=== PATIENT | male | born 1950 | race Caucasian/White ===

== ENCOUNTER 2016-11-01 01:46 | Inpatient (IN) | payer MEDICARE, MEDICAID ==
[~2016-11-01] VITALS: Ht 175.3 cm; Wt 76.2 kg
--- NOTE | 2016-11-01 01:56 | NUR ---
Pt IN ER BED 3. Pt IS A/OX3, VERBAL, ABLE TO MAKE NEEDS KNOWN. SON AT BEDSIDE. NO S/S OF ACUTE DISTRESS OR SEVERE SOB NOTED. VS: BP 125/52, HR 69, R 18, T 97.6F, O2 94%.
[2016-11-01] MEDS ORDERED: ASPIRIN 81 MG TAB.CHEW PO ONE (02:00)
[2016-11-01] MEDS ORDERED: ASPIRIN 81 MG TAB.CHEW ONE (02:19)
--- NOTE | 2016-11-01 02:20 | NUR ---
IV ACCESS ON RAC #18G.
[2016-11-01 02:25] LABS: BASOPHILS % (AUTO) 0.3 % (0.0-2.0); EOSINOPHILS # (AUTO) 0.2 /CMM (0.0-0.7); HEMATOCRIT 42 % (39-51); HEMOGLOBIN 14.1 g/dL (13.5-17.5); LYMPHOCYTES # (AUTO) 2.5 /CMM (0.8-4.8); LYMPHOCYTES % (AUTO) 31.6 % (20.0-44.0); MEAN CORPUSCULAR HEMOGLOBIN 30 PG (26.0-33.0); MEAN CORPUSCULAR HGB CONC 34 g/dl (31.0-36.0); MEAN CORPUSCULAR VOLUME 90 fL (80-96); MONOCYTES # (AUTO) 0.5 /CMM (0.1-1.30); MONOCYTES % (AUTO) 5.9 % (2.0-12.0); NEUTROPHILS # (AUTO) 4.6 /CMM (1.8-8.9); NEUTROPHILS % (AUTO) 59.2 % (43.0-81.0); PLATELET COUNT (AUTO) 175 /CMM (150-450); RDW COEFFICIENT OF VARIATION 13.7 (11.5-15.0); RED BLOOD CELL COUNT(AUTO) 4.66 MIL/uL (4.5-6.0); WHITE BLOOD COUNT (AUTO) 7.8 K/uL (4.3-11.0)
[2016-11-01] MEDS ORDERED: FAMOTIDINE/PF INJ 20 MG/2 ML VIAL IV ONE ×2 (02:30→02:41)
[2016-11-01 02:38] LABS: CALCIUM, SERUM 8.6 mg/dL (8.5-10.1); CREATININE 1.4 mg/dL (0.6-1.3); POTASSIUM 4.3 mmol/L (3.5-5.1)
[2016-11-01 02:41] LABS: INR 1.11 (0.87-1.13); PROTHROMBIN TIME 11.9 SECS (9.5-12.7)
[2016-11-01 02:44] LABS: ALBUMIN 3.9 g/dL (3.4-5.0); BILIRUBIN,DIRECT 0.1 mg/dL (0.0-0.2); BILIRUBIN,TOTAL 0.5 mg/dL (0.2-1.0); TOTAL PROTEIN, SERUM 6.8 g/dL (6.4-8.2)
[2016-11-01 02:48] LABS: TROPONIN I 0.031 ng/mL (0.00-0.056)
[2016-11-01] MEDS ORDERED: ONDANSETRON HCL/PF 4 MG/2 ML VIAL ONE (03:11)
[2016-11-01] MEDS ORDERED: MORPHINE SULFATE INJ 2 MG/ML DISP.SYRIN ONE (03:11)
[2016-11-01] MEDS ORDERED: FUROSEMIDE 40 MG/4 ML VIAL ONE (03:12)
[2016-11-01] MEDS ORDERED: FUROSEMIDE 40 MG/4 ML VIAL IV ONE (03:30)
[2016-11-01] MEDS ORDERED: MORPHINE SULFATE INJ 2 MG/ML DISP.SYRIN IV ONE (03:30)
[2016-11-01] MEDS ORDERED: ONDANSETRON HCL/PF 4 MG/2 ML VIAL IV ONE (03:30)
--- NOTE | 2016-11-01 03:59 | NUR ---
REPORT GIVEN TO RNLYNETTE.
[2016-11-01 04:10] VITALS: BP 144/57
--- NOTE | 2016-11-01 04:15 | NUR ---
Pt LEFT ROOM VIA [facility] FOR ADMISSION TO [facility]
[2016-11-01] MEDS ORDERED: NITROGLYCERIN 0.4 MG/TAB BOTTLE SL PRN (04:30)
[2016-11-01] MEDS ORDERED: MORPHINE SULFATE INJ 4 MG/ML DISP.SYRIN IV PRN (04:30)
[2016-11-01] MEDS ORDERED: HYDROCODONE/APAP 5/325MG 1 EACH TABLET PO PRN (04:30)
[2016-11-01] MEDS ORDERED: MAG HYDROX/AL HYDROX/SIMETH 30 ML UDC PO PRN (04:30)
[2016-11-01] MEDS ORDERED: ONDANSETRON HCL/PF 4 MG/2 ML VIAL IVP PRN (04:30)
[2016-11-01] MEDS ORDERED: ACETAMINOPHEN 325 MG TABLET PO PRN (04:30)
[2016-11-01] MEDS ORDERED: Z GUARD REMEDY 2 OZ OINT TP PRN (04:30)
[2016-11-01] MEDS ORDERED: MAGNESIUM HYDROXIDE 30 ML UDC PO PRN (04:30)
--- NOTE | 2016-11-01 04:30 | NUR ---
PLANT SUPERVISOR INITIAL NOTES PT WAS BROUGHT FROM THE ER VIA GURNEY AND WAS ABLE TO AMBULATE TO THE BED WITH ASSISTANCE. NO SIGNS OF SOB OR DISTRESS. FAMILY IS ABT BED SIDE, PT SPEAKS [place] AND [place] ONLY AND ONLY UNDERSTANDS A LITTLE OF [place] BUT FAMILY IS ABLE TO TRANSLATE. PT DENIES PAIN STATES IT WAS RESOLVED IN ER WITH THE MEDS HE WAS GIVEN. IV ACCESS ON RIGHT ARE INTACT AND PATENT. BED IS IN LOW AND LOCKED POSITION, SIDE RAILS ARE UP, CALL LIGHT IS WITHIN REACH. WILL CONTINUE TO MONITOR PT
--- NOTE | 2016-11-01 06:40 | NUR ---
SPECIALIST FIELD ENGINEER CLOSING NOTES PT IS IN BED SLEEPING. NO SIGNS OF DISTRESS OR SOB. FAMILY REMAINS AT BEDSIDE, WILL BRING HOME MEDS TODAY. TELE MONITOR SHOWS SR 65 WITH PVC'S. SLIGHT WHEEZING IN LUQ OF CHEST. PICTURE OF WOUND WAS TAKEN AND PLACED IN CHART. BED IS IN LOW AND LOCKED POSITION, CALL LIGHT IS WITHIN REACH. WILL ENDORSE TO DAYSHIFT
--- NOTE | 2016-11-01 07:35 | NUR ---
DRYING MACHINE BACK TENDER NOTES RECEIVED PATIENT IN BED, VERBALLY RESPONSIVE, WITH HIS SON AT BED SIDE. PATIENT IN NO APPARENT DISTRESS, DENIES SOB. PER SON PATIENT DENIES CHEST PAIN. ON TELE MONITORING SR HR 64,IV LINE ON RAC PATENT.ALL NEEDS MET, CALL LIGHT WITHIN REACH.
[2016-11-01 08:00] VITALS: BP 124/47
[2016-11-01 12:00] VITALS: BP 120/48
[2016-11-01 16:00] VITALS: BP 113/53
[2016-11-01] MEDS ORDERED: ATEN50TA PO (16:03)
[2016-11-01] MEDS ORDERED: FENO134C PO (16:07)
[2016-11-01] MEDS ORDERED: ASPI-991 PO (16:07)
[2016-11-01] MEDS: ATENOLOL 50 MG TABLET PO SCH (18:00)
--- NOTE | 2016-11-01 18:44 | NUR ---
CONTROL VALVE TECHNICIAN CLOSING NOTES PATIENT IN BED, VERBALLY RESPONSIVE.NO COMPLAIN OF CHEST PAIN OR SOB, NO APPARENT DISTRESS NOTED. ON TELE MONITORING SR HR 69, IV LINE ON PATENT AND INTACT. PATIENT IS NPO SINCE 6PM, FOR NUCLEAR STUDY IN AM, CONSENT OBTAINED. ALL NEEDS MET, ALL DUE MEDS GIVEN. WILL ENDORSE CARE TO PM SHIFT.
[2016-11-01 20:00] VITALS: BP_SYST 116; BP_DIAS 46; BP_DIAS 48
--- NOTE | 2016-11-01 20:00 | NUR ---
COOKER OPERATOR NOTE PT IN BED AWAKE. A/O X 4, NO SOB, NO DISTRESS OR DISCOMFORT NOTED. DENIES PAIN. H/L RAC # 18 G INTACT AND PATENT. ON TELE SR HR 74. SIDE RAILS UP X 2 AND CALL LIGHT WITHIN REACH. VSS. CONTINUE TO MONITOR HIM. SON AT BED SIDE.
[2016-11-02] VITALS: BP 113/52
[2016-11-02 04:00] VITALS: BP 111/48
--- NOTE | 2016-11-02 04:00 | NUR ---
OIL SEPARATOR NOTE PT IN BED ASLEEP, AROUSABLE. NO DISTRESS OR DISCOMFORT NOTED. DENIES PAIN. ON TELE SR CONTINUE TO MONITOR HIM.
--- NOTE | 2016-11-02 06:36 | NUR ---
PUPPET DEVELOPER NOTE PT IN BED ASLEEP, AROUSABLE. NO DISTRESS OR DISCOMFORT NOTED. NO S/S OF PAIN NOTED. H/L INTACT AND PATENT. SIDE RAILS UP X 2 AND CALL LIGHT WITHIN REACH. ON TELE SR 64. WILL ENDORSE TO DAY SHIFT NURSE FOR CONTINUE TO CARE.
[2016-11-02 07:26] LABS: BASOPHILS % (AUTO) 0.3 % (0.0-2.0); CALCIUM, SERUM 8.4 mg/dL (8.5-10.1); CREATININE 1.7 mg/dL (0.6-1.3); EOSINOPHILS # (AUTO) 0.1 /CMM (0.0-0.7); EOSINOPHILS % (AUTO) 1.5 % (0.0-6.0); HEMATOCRIT 38 % (39-51); HEMOGLOBIN 13.2 g/dL (13.5-17.5); LYMPHOCYTES # (AUTO) 1.9 /CMM (0.8-4.8); LYMPHOCYTES % (AUTO) 23.9 % (20.0-44.0); MAGNESIUM 1.8 mg/dL (1.8-2.4); MEAN CORPUSCULAR HEMOGLOBIN 31 PG (26.0-33.0); MEAN CORPUSCULAR HGB CONC 35 g/dl (31.0-36.0); MEAN CORPUSCULAR VOLUME 89 fL (80-96); MONOCYTES # (AUTO) 0.6 /CMM (0.1-1.30); MONOCYTES % (AUTO) 7.6 % (2.0-12.0); NEUTROPHILS # (AUTO) 5.2 /CMM (1.8-8.9); NEUTROPHILS % (AUTO) 66.7 % (43.0-81.0); PLATELET COUNT (AUTO) 141 /CMM (150-450); POTASSIUM 3.8 mmol/L (3.5-5.1); RDW COEFFICIENT OF VARIATION 13.8 (11.5-15.0); RED BLOOD CELL COUNT(AUTO) 4.29 MIL/uL (4.5-6.0); WHITE BLOOD COUNT (AUTO) 7.8 K/uL (4.3-11.0)
[2016-11-02 07:29] LABS: THYROID STIMULATING HORMONE 0.735 uIU/mL (0.358-3.74)
--- NOTE | 2016-11-02 07:32 | NUR ---
AM RN NOTE Received patient sleeping comfortably in his bed no acute distress noted. No SOB noted resp even and non-labored. On NPO status for stress test. IV site intact and patent. Bed in low locked position. Will continue to monitor.
--- NOTE | 2016-11-02 07:50 | NUR ---
AM RN NOTE Patient left downstairs for stress test at this time.
[2016-11-02 08:00] VITALS: BP 107/49
[2016-11-02] MEDS: FENOFIBRATE 134 MG PO SCH (10:21)
[2016-11-02] MEDS: ATENOLOL 50 MG TABLET PO SCH (10:22)
--- NOTE | 2016-11-02 10:55 | NUR ---
AM RN NOTE Pt awake completed stress test. Family at bedside.
[2016-11-02] MEDS: ASPIRIN EC 325 MG TABLET.DR PO SCH (10:57)
--- NOTE | 2016-11-02 11:16 | NUR ---
NM: CARDIAC STRESS TEST WAS COMPLETED. TECH: RB.
[2016-11-02 12:00] VITALS: BP 110/58
[2016-11-02 14:09] LABS: CALCIUM, SERUM 8.7 mg/dL (8.5-10.1); CREATININE 1.4 mg/dL (0.6-1.3); POTASSIUM 3.9 mmol/L (3.5-5.1)
[2016-11-02 16:00] VITALS: BP 128/62
--- NOTE | 2016-11-02 18:22 | NUR ---
AM RN NOTE Patient awake, denies any pain or discomfort at this time. On tele monitor, SR 69. Will endorse care to next shift.
--- NOTE | 2016-11-02 19:50 | NUR ---
TECHNICAL SERVICES COORDINATOR NOTE: PATIENT RESTING IN BED, NO ACUTE DISTRESS NOTED, FAMILY AT BEDSIDE. BREATHING EVEN AND UNLABORED, NO SOB NOTED. TELE READING SR 70. IV TO RAC IN PLACE. INFORMED PATIENT THAT HE WILL HAVE CARDIAC CATH TOMORROW AT [facility] AT 2PM, ASP WEB DEVELOPER TIME SET FOR 11AM. BED LOCKED AND IN LOWEST POSITION, CALL LIGHT IN REACH. WILL CONTINUE TO MONITOR.
[2016-11-02 20:00] VITALS: BP 111/54
[2016-11-02] MEDS ORDERED: ATORVASTATIN 40 MG TABLET PO SCH (22:00)
[2016-11-02] MEDS ORDERED: IV 1/2NS 1000 ML 1,000 ML IV PRN (22:30)
[2016-11-03 00:07] VITALS: BP 120/57
--- NOTE | 2016-11-03 00:15 | NUR ---
RADIO COMMUNICATIONS MECHANICIAN NOTE: PATIENT FOR CARDIAC CATH LATER TODAY AT [facility]. INFORMED PATIENT THAT HE IS NPO AND CAN NOT EAT OR DRINK ANYMORE. WILL CONTINUE TO MONITOR.
[2016-11-03 04:00] VITALS: BP 124/60
--- NOTE | 2016-11-03 06:30 | NUR ---
SHELL COREMAKER NOTE: PATIENT RESTING IN BED, NO ACUTE DISTRESS NOTED. BREATHING EVEN AND UNLABORED, NO SOB NOTED. TELE READING SR 72. IV TO RAC IN PLACE. PATIENT TO HAVE CARDIAC CATH TODAY AT [facility] AT 2PM, PAYROLL SPECIALIST TIME SET FOR 11AM. BED LOCKED AND IN LOWEST POSITION, CALL LIGHT IN REACH. WILL ENDORSE TO DAY NURSE TO CONTINUE WITH PLAN OF CARE.
--- NOTE | 2016-11-03 07:20 | NUR ---
RN NOTES RECEIVED PT IN BED, RESTING. NO SIGNS OF DISTRESS OR PAIN NOTED. IV RAC RUNNING 1/2NS AT 75ML/HR. SAFETY MEASURES ARE IN PLACE. WILL CONTINUE TO MONITOR.
[2016-11-03 07:43] LABS: CREATININE 1.3 mg/dL (0.6-1.3); POTASSIUM 4.5 mmol/L (3.5-5.1)
[2016-11-03 08:00] VITALS: BP 116/54
[2016-11-03] MEDS: FENOFIBRATE 134 MG PO SCH (08:30)
[2016-11-03] MEDS: ASPIRIN EC 325 MG TABLET.DR PO SCH (08:31)
--- NOTE | 2016-11-03 11:14 | NUR ---
PT WAS TRANSFERRED TO [facility] FOR CARDIAC CATHETERIZATION. PT WAS SENT WITH BELONGINGS AND MEDICATIONS. TRANSPORT FORMS WERE SIGNED AND EDUCATION MATERIAL WAS GIVEN. WILL FOLLOW UP FOR FURTHER TREATMENT AND MD ORDERS.
[2016-11-03 12:00] VITALS: BP 121/69
--- NOTE | 2016-11-03 16:29 | NUR ---
PT WAS DISCHARGED TO [facility]. PT WAS TRANSFERRED THERE AT 1100 FOR CARDIAC CATHETERIZATION.
== END 2016-11-03 16:15 | disposition short-term general hospital (02) | DRG 302 ==
LOC: ER 01:47 → TELE 03:28
PROVIDERS: ADMIT Nurse Practitioner Acute Care; ATTEND Nurse Practitioner Acute Care
DX: I25.110 Atherosclerotic heart disease of native coronary artery with unstable angina pectoris (principal); N17.0 Acute kidney failure with tubular necrosis; I50.31 Acute diastolic (congestive) heart failure; I13.0 Hypertensive heart and chronic kidney disease with heart failure and stage 1 through stage 4 chronic kidney disease, or unspecified chronic kidney disease; E78.5 Hyperlipidemia, unspecified; E86.9 Volume depletion, unspecified; N18.9 Chronic kidney disease, unspecified; Z95.5 Presence of coronary angioplasty implant and graft; Z95.2 Presence of prosthetic heart valve; T50.1X5A Adverse effect of loop [high-ceiling] diuretics, initial encounter; Y92.009 Unspecified place in unspecified non-institutional (private) residence as the place of occurrence of the external cause; Z98.890 Other specified postprocedural states
CPT/HCPCS: 36415; 71010-TC; 80048-TC; 80061-TC; 80076-TC; 83690-TC; 83735-TC; 83880; 84100-TC; 84443-TC; 84484-TC; 85025-TC; 85730-TC; 87081-TC; 93307-TC; A4606; A9502; J1940; J2270; J2405; J3490; Z7610

== ENCOUNTER 2019-02-08 09:41 | Outpatient (CLI) | payer MEDICARE, MEDICAID ==
[~2019-02-08] VITALS: Ht 172.7 cm; Wt 80.7 kg
[~2019-02-08 09:41] MED LIST: ASPI-1152 PO; ATEN50TA PO; CT SWABBABLE VALVE TRANS SET 1 EA INFUS.SET MC ONE; FENO134C PO; IOHEXOL-350 100 ML VIAL IV ONE; IV NS 0.9% 250 ML IV ONE
[2019-02-08] MEDS ORDERED: METOPROLOL TARTRATE INJ 5 MG/5 ML AMPUL ONE (10:00)
[2019-02-08] MEDS ORDERED: ICOS1CAP PO (10:24)
[2019-02-08] MEDS ORDERED: CLOP75TA15 PO (10:24)
[2019-02-08] MEDS ORDERED: DEXL60CA3 PO (10:24)
[2019-02-08] MEDS ORDERED: METO25TA20 PO (10:24)
[2019-02-08] MEDS ORDERED: NITROGLYCERIN 0.4 MG/TAB BOTTLE SL ONE (10:30)
[2019-02-08] MEDS ORDERED: METOPROLOL TARTRATE INJ 5 MG/5 ML AMPUL IVP ONE (10:30)
[2019-02-08] MEDS ORDERED: NITROGLYCERIN 4.9 GM SPRAY SL ONE (10:30)
[2019-02-08] MEDS ORDERED: IV NS 0.9% 500 ML IV PRN (10:30)
[2019-02-08] MEDS ORDERED: IOHEXOL-350 100 ML VIAL IV ONE (11:17)
--- NOTE | 2019-02-08 11:57 | NUR ---
RECEIVED PT AWAKE IN BED, ALERT AND ORIENTED X 4, DENIES ANY PAIN, PT ON ROOM AIR, SATURATING WELL, NO SIGNS OF RESPIRATORY DISTRESS NOTED, RESPIRATIONS EVEN AND UNLABORED. VITALS: BP 133/72, HR 56, 02 SAT 98%, TEMP 98.0, RESPIRATION RATE 18. BED IN LOW POSITION, LOCKED, CALL LIGHT WITHIN REACH.
--- NOTE | 2019-02-08 13:33 | NUR ---
PT ABLE TO AMBULATE, GAIT IS STABLE, DENIES ANY PAIN OR SOB AT THIS TIME, ON ROOM AIR, SATURATING WELL, NO SIGNS OF RESPIRATORY DISTRESS NOTED. VITALS: 119/70, HR 58, RESPIRATION RATE 16, 02 SAT 97%, TEMP 97.7.
--- NOTE | 2019-02-08 14:00 | NUR ---
SPOKE WITH CT AND RADIOLOGY WHO STATED PT DOES NOT NEED TO BE CLEARED BY DR LOERA, AND CAN BE DISCHARGED IF IN STABLE CONDITION. PT DISCHARGED IN STABLE CONDITION AND LEFT UNIT AT 14:00.
== END 2019-02-08 23:59 | disposition home or self-care (01) ==
LOC: CT 09:41
PROVIDERS: ATTEND Internal Medicine Interventional Cardiology
DX: I25.810 Atherosclerosis of coronary artery bypass graft(s) without angina pectoris (principal); I77.89 Other specified disorders of arteries and arterioles; I35.8 Other nonrheumatic aortic valve disorders; I10 Essential (primary) hypertension; Z95.2 Presence of prosthetic heart valve; Z95.1 Presence of aortocoronary bypass graft; Z95.5 Presence of coronary angioplasty implant and graft
CPT/HCPCS: 75574; J3490; J7040; J7050; Q9967 ×2

== ENCOUNTER 2019-02-15 05:46 | Inpatient (IN) | payer MEDICARE, MEDICAID ==
[2019-02-15] VITALS (35 sets, daily range): BP systolic 113–159; BP diastolic 59–128
[~2019-02-15] VITALS: Ht 165.1 cm; Wt 81.2 kg
[~2019-02-15 05:46] MED LIST changes: -ATEN50TA PO; +CLOP75TA15 PO; -CT SWABBABLE VALVE TRANS SET 1 EA INFUS.SET MC ONE; +DEXL60CA3 PO; -FENO134C PO; +ICOS1CAP PO; -IOHEXOL-350 100 ML VIAL IV ONE; -IV NS 0.9% 250 ML IV ONE; +METO25TA20 PO
[2019-02-15 05:51] LABS: BASOPHILS % (AUTO) 0.7 % (0.0-2.0); EOSINOPHILS % (AUTO) 2.7 % (0.0-6.0); HEMATOCRIT 47 % (39-51); HEMOGLOBIN 15.9 g/dL (13.5-17.5); LYMPHOCYTES # (AUTO) 2.4 /CMM (0.8-4.8); MEAN CORPUSCULAR HGB CONC 34 g/dl (31.0-36.0); MEAN CORPUSCULAR VOLUME 90 fL (80-96); MONOCYTES # (AUTO) 0.5 /CMM (0.1-1.30); MONOCYTES % (AUTO) 8.7 % (2.0-12.0); NEUTROPHILS # (AUTO) 3.1 /CMM (1.8-8.9); NEUTROPHILS % (AUTO) 49.9 % (43.0-81.0); PLATELET COUNT (AUTO) 138 /CMM (150-450); RED BLOOD CELL COUNT(AUTO) 5.23 MIL/uL (4.5-6.0); WHITE BLOOD COUNT (AUTO) 6.2 K/uL (4.3-11.0)
[2019-02-15] MEDS ORDERED: EZET1TAB31 PO (05:53)
[2019-02-15 05:59] LABS: CALCIUM, SERUM 9.4 mg/dL (8.5-10.1); CREATININE 1.1 mg/dL (0.6-1.3); POTASSIUM 3.8 mmol/L (3.5-5.1)
[2019-02-15 06:05] LABS: ALBUMIN 4.4 g/dL (3.4-5.0); BILIRUBIN,TOTAL 1.2 mg/dL (0.2-1.0); TOTAL PROTEIN, SERUM 7.8 g/dL (6.4-8.2)
[2019-02-15] MEDS ORDERED: IV NS 0.9% 1,000 ML ONE (06:07)
[2019-02-15] MEDS ORDERED: IV SET PRIMARY PUMP SET 1 EA INFUS.SET MC ONE (06:08)
[2019-02-15] MEDS ORDERED: LIDOCAINE HCL/PF 1% 30 ML SDV ONE (06:09)
[2019-02-15] MEDS ORDERED: IODIXANOL 150 ML IV ONE ×2 (06:09→08:19)
[2019-02-15] MEDS ORDERED: NITROGLYCERIN ICAR 1,000 MCG/10 ML VIAL ICAR ONE (06:10)
[2019-02-15] MEDS ORDERED: IV NS 0.9% 50 ML IV ONE (06:11)
[2019-02-15] MEDS ORDERED: VERAPAMIL HCL IV 5 MG/2 ML VIAL ONE (06:11)
[2019-02-15] MEDS ORDERED: FENTANYL PF 100MCG/2ML AMPUL ONE ×2 (06:12→07:35)
[2019-02-15] MEDS ORDERED: HEPARIN SODIUM, PORCINE 1,000 UNIT/ML VIAL ONE (06:12)
[2019-02-15] MEDS ORDERED: MIDAZOLAM HCL 2 MG/2ML VIAL ONE ×2 (06:12→07:35)
[2019-02-15] MEDS ORDERED: CLOPIDOGREL BISULFATE 300 MG TABLET ONE (08:36)
[2019-02-15] MEDS ORDERED: ASPIRIN 325 MG TABLET ONE (08:36)
[2019-02-15] MEDS ORDERED: IODIXANOL 320MG/ML 50 ML IV ONE (08:37)
--- NOTE | 2019-02-15 10:10 | NUR ---
ICU/RN: RECEIVED PT FROM CARDIAC TUCK POINTER HELPER. PT WAS TRANSFERRED VIA GURNEY WITH ACLS GUIDELINES. RECEIVED REPORT FROM LOUANN RN. PT ALERT AWAKE, ORIENTED, FOLLOWS COMMANDS. [place] SPEAKING. PT HAS LEFT TR BAND WITH 15ML AIR AND RIGHT FEMORAL SHEATH IN PLACE. NO S/S OF BLEEDING NOTED. WILL START TO RELEASE AIR PER PROTOCOL. PT COMFORTABLE, DENIES ANY CHEST PAIN OR GENERAL PAIN. URINAL AT BEDSIDE. ALL NEEDS WILL BE ATTENDED TO, SAFETY MEASURES TAKEN, BED IN LOW POSITION, SIDE RAILS UP, CALL LIGHT WITHIN REACH. WILL CONTINUE CARE.
[2019-02-15] MEDS ORDERED: IV NS 0.9% 500 ML IV ONE (10:30)
[2019-02-15] MEDS ORDERED: IV 1/2NS 1000 ML 1,000 ML IV PRN (11:36)
[2019-02-15] MEDS ORDERED: ATROPINE SULFATE 1 MG/10 ML DISP.SYRIN ONE (11:48)
--- NOTE | 2019-02-15 11:50 | NUR ---
ICU/RN: HOISTMAN TEAM AT BEDSIDE. SHEATH REMOVED, PRESSURE APPLIED FOR 20-30 MINUTES. TRANSPARENT DRESSING APPLIED. NO S/S OF BLEEDING NOTED. WILL CONTINUE TO MONITOR SITE FOR BLEEDING OR HEMATOMA.
[2019-02-15] MEDS ORDERED: ACETAMINOPHEN 325 MG TABLET PO PRN (12:00)
[2019-02-15] MEDS ORDERED: Z GUARD REMEDY 2 OZ OINT TP PRN (12:00)
[2019-02-15] MEDS ORDERED: ONDANSETRON HCL/PF 4 MG/2 ML VIAL IVP PRN (12:00)
[2019-02-15] MEDS ORDERED: ZOLPIDEM TARTRATE 5 MG TABLET PO PRN (12:00)
--- NOTE | 2019-02-15 15:15 | NUR ---
ICU/RN: RELEASED AIR FROM LEFT TR BAND PER PROTOCOL 1140-3ML 1157-2ML 1213-3ML 1234-3ML 1324-2ML 1345-2ML TOTAL OF 15ML OF AIR IN BAND TR BAND REMOVED AT AT 1515. NO S/S OF BLEEDING NOTED. TRANSPARENT DRESSING APPLIED PER MD ORDER. POST INSTRUCTIONS GIVEN TO PT. PT VERBALIZES UNDERSTANDING. WILL CONTINUE TO MONITOR.
--- NOTE | 2019-02-15 19:18 | NUR ---
ICU/RN: ENDING NOTES,AM REPORT ENDORSED TO NIGHT NURSE FOR PRICILA. PT ALERT, AWAKE, FOLLOWS COMMANDS. ON ROOM AIR, NO DISTRESS. LEFT TR BAND REMOVED, NO S/S OF BLEEDING NOTED, RIGHT FEMORAL SITE C/D/I, NO S/S OF BLEEDING NOTED. ALL NEEDS ATTENDED TO, SAFETY MEASURES TAKEN, BED IN LOW POSITION, SIDE RAILS UP, CALL LIGHT WITHIN REACH. WILL CONTINUE CARE.
--- NOTE | 2019-02-15 19:30 | NUR ---
RN NOTES RECEIVED PATIENT AWAKE ALERT ORIENTED X 4 [place] SPEAKING BUT ABLE TO SPEAK AND UNDERSTAND A LITTLE [place] NO COMPLAINED OF SOB IN ROOM AIR SATURATION 98%. AFEBRILE. VSS. DENIES CHEST PAIN. LEFT WRIST AND RIGHT FEMORAL WITH DRESSING FROM STENT PLACEMENT. DRESSING CLEAN AND INTACT NO BLEEDING ON THE SITE. IV SITE ON RIGHT HAND WITH 1/2 NS @ 100 ML/HR INTACT AND PATENT. PATIENT USED URINAL AT BEDSIDE. REMINDED TO USE CALL LIGHT FOR ASSISTANCE AND DEMONSTRATED UNDERSTANDING. KEPT PT CLEAN AND DRY.
[2019-02-15] MEDS: METOPROLOL TARTRATE 25 MG TABLET PO SCH (21:13)
[2019-02-15] MEDS ORDERED: EZETIMIBE 10 MG TABLET PO SCH (22:00)
[2019-02-15] MEDS ORDERED: SIMVASTATIN 20 MG TABLET PO SCH (22:00)
[2019-02-16] VITALS (18 sets, daily range): BP systolic 106–137; BP diastolic 58–78
[2019-02-16 04:50] LABS: BASOPHILS % (AUTO) 0.3 % (0.0-2.0); EOSINOPHILS % (AUTO) 2.5 % (0.0-6.0); HEMATOCRIT 41 % (39-51); HEMOGLOBIN 14.2 g/dL (13.5-17.5); LYMPHOCYTES # (AUTO) 1.1 /CMM (0.8-4.8); LYMPHOCYTES % (AUTO) 18.7 % (20.0-44.0); MEAN CORPUSCULAR HGB CONC 35 g/dl (31.0-36.0); MEAN CORPUSCULAR VOLUME 89 fL (80-96); MONOCYTES # (AUTO) 0.5 /CMM (0.1-1.30); MONOCYTES % (AUTO) 7.9 % (2.0-12.0); NEUTROPHILS # (AUTO) 4.1 /CMM (1.8-8.9); NEUTROPHILS % (AUTO) 70.6 % (43.0-81.0); PLATELET COUNT (AUTO) 118 /CMM (150-450); RED BLOOD CELL COUNT(AUTO) 4.56 MIL/uL (4.5-6.0); WHITE BLOOD COUNT (AUTO) 5.9 K/uL (4.3-11.0)
[2019-02-16 05:05] LABS: CALCIUM, SERUM 8.6 mg/dL (8.5-10.1); CREATININE 0.9 mg/dL (0.6-1.3); MAGNESIUM 1.9 mg/dL (1.8-2.4); PHOSPHORUS 3.9 mg/dL (2.5-4.9); POTASSIUM 3.9 mmol/L (3.5-5.1)
--- NOTE | 2019-02-16 07:00 | NUR ---
RN NOTES PATIENT REMAINED STABLE NO SIGNIFICANT CHANGE OF CONDITION. SINUS RHYTHM ON TELE MONITOR. DRESSING CHANGED TO LEFT WRIST AND RIGHT FEMORAL. NO BLEEDING PALPABLE. VSS , AFEBRILE. DENIES PAIN OR CHEST PAIN. IV SITE CONTINUE WITH IVF ON 04/06 NS @ 100 ML/HR WITH GOOD URINE OUTPUT. PATIENT ASLEEP WELL THROUGHOUT THE SHIFT. REFUSED TO BE WASHED PER PATIENT HE WILL DO IT LATER. ENDORSED CONTINUITY OF CARE TO AM NURSE.
--- NOTE | 2019-02-16 07:44 | NUR ---
ICU/RN: INITIAL NOTES,AM RECEIVED BEDSIDE REPORT FROM NIGHT NURSE. PT ALERT, AWAKE, ORIENTED. ON ROOM AIR, NO DISTRESS. UNEVENTFUL NIGHT. NO CHEST PAIN NOTED. SINUS ON TELE. VSS. NO S/S OF BLEEDING, SITES ASSESSED. POSSIBLE DISCHARGE TODAY. ALL NEEDS WILL BE ATTENDED TO, SAFETY MEASURES TAKEN, BE IN LOW POSITION, SIDE RAILS UP, CALL LIGHT WITHIN REACH.
[2019-02-16] MEDS: METOPROLOL TARTRATE 25 MG TABLET PO SCH (08:16)
[2019-02-16] MEDS ORDERED: ASPIRIN 81 MG TAB.CHEW PO SCH (09:00)
[2019-02-16] MEDS ORDERED: CLOPIDOGREL BISULFATE 75 MG TABLET PO SCH (09:00)
--- NOTE | 2019-02-16 10:48 | NUR ---
ICU/RN: DISCHARGE NOTE AT BEDSIDE. EXIT CARE AND DISCHARGE PAPERWORK PREPARED. AFTER CARE INSTRUCTIONS GIVEN TO PT. PT IS TO FOLLOW UP WITH IN 2 WEEKS IN HIS OFFICE. PIV REMOVED, NO S/S OF BLEEDING NOTED. NO SKIN PHOTOS NEEDED. ALL BELONGINGS CHECKED, FORM SIGNED. PT ESCORTED OUT.
== END 2019-02-16 10:48 | disposition home or self-care (01) | DRG 247 ==
LOC: CATHLAB 05:46 → ICU 10:33
PROVIDERS: ADMIT Internal Medicine; ATTEND Internal Medicine
PROC: 4A023N7 Measurement of Cardiac Sampling and Pressure, Left Heart, Percutaneous Approach (ICD-10-PCS; principal; 2019-02-15)
PROC: 027034Z Dilation of Coronary Artery, One Artery with Drug-eluting Intraluminal Device, Percutaneous Approach (ICD-10-PCS; 2019-02-15)
PROC: B211YZZ Fluoroscopy of Multiple Coronary Arteries using Other Contrast (ICD-10-PCS; 2019-02-15)
PROC: B41FYZZ Fluoroscopy of Right Lower Extremity Arteries using Other Contrast (ICD-10-PCS; 2019-02-15)
PROC: B312YZZ Fluoroscopy of Left Subclavian Artery using Other Contrast (ICD-10-PCS; 2019-02-15)
DX: I25.110 Atherosclerotic heart disease of native coronary artery with unstable angina pectoris (principal); Z95.2 Presence of prosthetic heart valve; Z95.1 Presence of aortocoronary bypass graft; K21.9 Gastro-esophageal reflux disease without esophagitis; I10 Essential (primary) hypertension; I35.0 Nonrheumatic aortic (valve) stenosis; Z79.82 Long term (current) use of aspirin; Z79.01 Long term (current) use of anticoagulants; Z79.899 Other long term (current) drug therapy; I71.2 Thoracic aortic aneurysm, without rupture; D69.6 Thrombocytopenia, unspecified
CPT/HCPCS: 36415; 80048-TC; 80053-TC; 80061-TC; 83735-TC; 84100-TC; 85025-TC; 85610-TC; 85730-TC; 87081-TC; 92980; 92982; 93452; A4216; C1725; C1887; C1894; G0378; J0461; J1644; J2250; J3010; J3490; J7030; Q9967

== ENCOUNTER 2020-02-27 09:53 | Outpatient (CLI) | payer MEDICARE, MEDICAID ==
[~2020-02-27 09:53] MED LIST changes: -ASPI-1152 PO; +ASPI-1420 PO; -DEXL60CA3 PO; +EZET1TAB31 PO
[2020-02-27] MEDS ORDERED: IV NS 0.9% 250 ML IV ONE (10:03)
[2020-02-27] MEDS ORDERED: IOHEXOL-350 100 ML VIAL IV ONE (10:03)
[2020-02-27] MEDS ORDERED: CT SWABBABLE VALVE TRANS SET 1 EA INFUS.SET MC ONE (10:03)
== END 2020-02-27 23:59 | disposition home or self-care (01) ==
LOC: CT 09:53
PROVIDERS: ATTEND Internal Medicine Interventional Cardiology
DX: I71.2 Thoracic aortic aneurysm, without rupture (principal); I70.0 Atherosclerosis of aorta; I51.7 Cardiomegaly; E04.1 Nontoxic single thyroid nodule; Z95.1 Presence of aortocoronary bypass graft
CPT/HCPCS: 71275; J7050; Q9967

== ENCOUNTER 2021-05-15 09:25 | Outpatient (CLI) | payer MEDICARE, BC ==
[2021-05-15] MEDS ORDERED: IOHEXOL-350 100 ML VIAL IV ONE (10:36)
[2021-05-15] MEDS ORDERED: CT SWABBABLE VALVE TRANS SET 1 EA INFUS.SET MC ONE (10:36)
[2021-05-15] MEDS ORDERED: IV NS 0.9% 250 ML IV ONE (10:36)
[2021-05-15 11:15] LABS: CALCIUM, SERUM 9.2 mg/dL (8.5-10.1); POTASSIUM 4.1 mmol/L (3.5-5.1)
== END 2021-05-15 23:59 | disposition home or self-care (01) ==
LOC: CT 09:25
PROVIDERS: ATTEND Internal Medicine Interventional Cardiology
DX: I71.2 Thoracic aortic aneurysm, without rupture (principal); R94.4 Abnormal results of kidney function studies; E04.1 Nontoxic single thyroid nodule; J92.9 Pleural plaque without asbestos; I51.7 Cardiomegaly; I70.0 Atherosclerosis of aorta; M47.814 Spondylosis without myelopathy or radiculopathy, thoracic region; Z95.1 Presence of aortocoronary bypass graft
CPT/HCPCS: 36415; 71275; 80048; J7050; Q9967

== ENCOUNTER 2023-11-04 18:49 | Inpatient (IN) | payer MEDICARE, OTHER ==
[~2023-11-04] VITALS: Ht 162.6 cm; Wt 72.6 kg
[2023-11-04 19:40] LABS: BASOPHILS % (AUTO) 0.7 % (0.0-2.0); EOSINOPHILS # (AUTO) 0.2 K/uL (0.0-0.7); EOSINOPHILS % (AUTO) 2.9 % (0.0-6.0); HEMATOCRIT 43 % (39-51); HEMOGLOBIN 14.7 g/dL (13.5-17.5); LYMPHOCYTES # (AUTO) 1.9 K/uL (0.8-4.8); LYMPHOCYTES % (AUTO) 30.7 % (20.0-44.0); MEAN CORPUSCULAR HEMOGLOBIN 30 PG (26.0-33.0); MEAN CORPUSCULAR HGB CONC 34 g/dl (31.0-36.0); MEAN CORPUSCULAR VOLUME 88 fL (80-96); MONOCYTES # (AUTO) 0.5 K/uL (0.1-1.30); NEUTROPHILS # (AUTO) 3.5 K/uL (1.8-8.9); NEUTROPHILS % (AUTO) 57.7 % (43.0-81.0); PLATELET COUNT (AUTO) 142 K/uL (150-450); RED BLOOD CELL COUNT(AUTO) 4.84 MIL/uL (4.5-6.0); RED CELL DISTRIBUTION WIDTH 14.1 % (11.5-15.0); WHITE BLOOD COUNT (AUTO) 6.1 K/uL (4.3-11.0)
[2023-11-04 19:52] LABS: INR 1.08 (0.91-1.10); PARTIAL THROMBOPLASTIN TIME 29.5 SEC (24.3-34.3); PROTHROMBIN TIME 11.4 SECS (9.2-11.1)
[2023-11-04 19:55] LABS: APPEARANCE,URINE Clear (CLEAR); BILIRUBIN,URINE Negative (NEGATIVE); BLOOD, URINE Small Ery/uL (NEGATIVE); COLOR,URINE YELLOW (YELLOW); KETONES,URINE Negative (NEGATIVE); LEUKOCYTE ESTERASE ,URINE Negative (NEGATIVE); NITRITE, URINE Negative (NEGATIVE); PH,URINE 5.5 (5.0-8.0); PROTEIN,URINE Negative (NEGATIVE); UGLUCOSE Negative (NEGATIVE); UROBILINOGEN,URINE 0.2 EU/dL (0.2)
[2023-11-04 20:02] LABS: CALCIUM, SERUM 9.2 mg/dL (8.5-10.1); CARBON DIOXIDE 27 mmol/L (21-32); CHLORIDE 106 mmol/L (98-107); GLUCOSE 189 mg/dL (74-106); POTASSIUM 4.3 mmol/L (3.5-5.1); SODIUM SERUM 142 mmol/L (136-145); UREA NITROGEN, BLOOD 22 mg/dL (7-18)
[2023-11-04 20:07] LABS: ALANINE AMINOTRANSFERASE 28 U/L (12-78); ALBUMIN 3.4 g/dL (3.4-5.0); ALKALINE PHOSPHATASE 58 U/L (46-116); ASPARTATE AMINOTRANSFERASE 13 U/L (15-37); BILIRUBIN,DIRECT 0.2 mg/dL (0.0-0.2); BILIRUBIN,TOTAL 0.7 mg/dL (0.2-1.0); TOTAL PROTEIN, SERUM 6.9 g/dL (6.4-8.2)
[2023-11-04 20:08] LABS: ADD URINE CULTURE NO; BACTERIA,URINE Few /HPF (None Seen); SQUAMOUS EPITHELIAL CELL,UR Few /HPF (None Seen); WBC,URINE 0-2 /HPF (0-3)
[2023-11-04 20:12] LABS: LACTIC ACID 2.2 mmol/L (0.4-2.0)
[2023-11-04 22:51] VITALS: BP 148/84; TEMP 97.9; O2SAT 96
[2023-11-04 22:55] VITALS: BP 148/84; TEMP 97.9; O2SAT 96
[2023-11-04] MEDS ORDERED: ACETAMINOPHEN 325 MG TABLET PO PRN (23:00)
[2023-11-04] MEDS ORDERED: MORPHINE SULFATE INJ 2 MG/ML DISP.SYRIN IV PRN (23:00)
[2023-11-04] MEDS ORDERED: hydrALAZINE HCL IV 20 MG VIAL IV PRN (23:00)
[2023-11-04] MEDS ORDERED: ONDANSETRON HCL/PF 4 MG/2 ML VIAL IVP PRN (23:00)
[2023-11-04] MEDS: IV D5/0.45 NACL 1,000 ML IV SCH (23:48)
[2023-11-05] VITALS (7 sets, daily range): BP systolic 108–148; BP diastolic 63–84; TEMP 97.3–98.1; O2SAT 96–100
[2023-11-05 06:28] LABS: BASOPHILS % (AUTO) 0.6 % (0.0-2.0); EOSINOPHILS # (AUTO) 0.2 K/uL (0.0-0.7); EOSINOPHILS % (AUTO) 3.7 % (0.0-6.0); HEMATOCRIT 40 % (39-51); HEMOGLOBIN 14.1 g/dL (13.5-17.5); LYMPHOCYTES % (AUTO) 33.4 % (20.0-44.0); MEAN CORPUSCULAR HEMOGLOBIN 31 PG (26.0-33.0); MEAN CORPUSCULAR HGB CONC 36 g/dl (31.0-36.0); MEAN CORPUSCULAR VOLUME 87 fL (80-96); MONOCYTES # (AUTO) 0.4 K/uL (0.1-1.30); MONOCYTES % (AUTO) 7.3 % (2.0-12.0); NEUTROPHILS # (AUTO) 3.2 K/uL (1.8-8.9); PLATELET COUNT (AUTO) 123 K/uL (150-450); RED BLOOD CELL COUNT(AUTO) 4.54 MIL/uL (4.5-6.0); RED CELL DISTRIBUTION WIDTH 13.5 % (11.5-15.0); WHITE BLOOD COUNT (AUTO) 5.9 K/uL (4.3-11.0)
[2023-11-05 07:31] LABS: ALANINE AMINOTRANSFERASE 31 U/L (12-78); ALKALINE PHOSPHATASE 47 U/L (46-116); ASPARTATE AMINOTRANSFERASE 14 U/L (15-37); BILIRUBIN,TOTAL 0.6 mg/dL (0.2-1.0); CALCIUM, SERUM 8.1 mg/dL (8.5-10.1); CARBON DIOXIDE 24 mmol/L (21-32); CHLORIDE 108 mmol/L (98-107); GLUCOSE 158 mg/dL (74-106); MAGNESIUM 1.9 mg/dL (1.8-2.4); POTASSIUM 3.9 mmol/L (3.5-5.1); SODIUM SERUM 141 mmol/L (136-145); TOTAL PROTEIN, SERUM 6.1 g/dL (6.4-8.2); UREA NITROGEN, BLOOD 22 mg/dL (7-18)
[2023-11-05] MEDS ORDERED: EMPA10TA PO (08:14)
[2023-11-05] MEDS ORDERED: EVOL140P3 SQ (08:14)
[2023-11-05] MEDS ORDERED: ENAL10TA39 PO (08:14)
[2023-11-05] MEDS ORDERED: EZETIMIBE PO SCH (09:00)
[2023-11-05] MEDS: ASPIRIN EC 81 MG TABLET.DR PO SCH (09:00)
[2023-11-05] MEDS ORDERED: SIMVASTATIN PO SCH (09:00)
[2023-11-05] MEDS: METOPROLOL TARTRATE 25 MG TABLET PO SCH (09:11)
[2023-11-05] MEDS: CLOPIDOGREL BISULFATE 75 MG TABLET PO SCH (09:11)
[2023-11-05 16:43] LABS: CHOLESTEROL 113 mg/dL (<200); HDL CHOLESTEROL 41 mg/dL (40-60); LDL 53 mg/dL (0-99); TRIGLYCERIDES 123 mg/dL (30-150)
[2023-11-05] MEDS ORDERED: IOHEXOL-350 100 ML VIAL IV ONE (17:51)
[2023-11-05] MEDS ORDERED: IV NS 0.9% 250 ML IV ONE (17:51)
[2023-11-05] MEDS ORDERED: CT SWABBABLE VALVE TRANS SET 1 EA INFUS.SET MC ONE (17:51)
[2023-11-05] MEDS: VASCEPA 1 GM PO SCH (19:19)
[2023-11-05] MEDS: EZETIMIBE 10 MG TABLET PO SCH (21:06)
[2023-11-05] MEDS: SIMVASTATIN 20 MG TABLET PO SCH (21:06)
[2023-11-05] MEDS: HEPARIN SODIUM, PORCINE 5000 UNITS/1 ML VIAL SQ SCH (21:11)
[2023-11-06 00:25] VITALS: BP 156/80; TEMP 97.5; O2SAT 97
[2023-11-06 04:15] VITALS: BP 145/84; TEMP 97.9; O2SAT 96
[2023-11-06 07:57] LABS: BASOPHILS % (AUTO) 0.3 % (0.0-2.0); EOSINOPHILS # (AUTO) 0.2 K/uL (0.0-0.7); EOSINOPHILS % (AUTO) 4.1 % (0.0-6.0); HEMATOCRIT 41 % (39-51); LYMPHOCYTES # (AUTO) 1.9 K/uL (0.8-4.8); LYMPHOCYTES % (AUTO) 35.8 % (20.0-44.0); MEAN CORPUSCULAR HEMOGLOBIN 30 PG (26.0-33.0); MEAN CORPUSCULAR HGB CONC 35 g/dl (31.0-36.0); MEAN CORPUSCULAR VOLUME 88 fL (80-96); MONOCYTES # (AUTO) 0.4 K/uL (0.1-1.30); MONOCYTES % (AUTO) 6.9 % (2.0-12.0); NEUTROPHILS # (AUTO) 2.8 K/uL (1.8-8.9); NEUTROPHILS % (AUTO) 52.9 % (43.0-81.0); PLATELET COUNT (AUTO) 126 K/uL (150-450); RED BLOOD CELL COUNT(AUTO) 4.62 MIL/uL (4.5-6.0); RED CELL DISTRIBUTION WIDTH 13.4 % (11.5-15.0); WHITE BLOOD COUNT (AUTO) 5.3 K/uL (4.3-11.0)
[2023-11-06 07:59] LABS: CALCIUM, SERUM 8.9 mg/dL (8.5-10.1); CARBON DIOXIDE 20 mmol/L (21-32); CHLORIDE 107 mmol/L (98-107); GLUCOSE 137 mg/dL (74-106); MAGNESIUM 2.1 mg/dL (1.8-2.4); PHOSPHORUS 4.1 mg/dL (2.5-4.9); POTASSIUM 3.8 mmol/L (3.5-5.1); SODIUM SERUM 141 mmol/L (136-145); UREA NITROGEN, BLOOD 19 mg/dL (7-18)
[2023-11-06 08:00] VITALS: BP 124/65; TEMP 97.9; O2SAT 96
[2023-11-06 09:48] VITALS: BP 138/66
[2023-11-06] MEDS ORDERED: ASPI-1169 PO (10:41)
== END 2023-11-06 16:15 | disposition home or self-care (01) | DRG 64 ==
LOC: ER 19:16 → TELE 22:24 → MED 11-06 16:10
PROVIDERS: ADMIT Internal Medicine; ATTEND Student in an Organized Health Care Education/Training Program
DX: I63.531 Cerebral infarction due to unspecified occlusion or stenosis of right posterior cerebral artery (principal); G93.41 Metabolic encephalopathy; E44.0 Moderate protein-calorie malnutrition; E87.20 Acidosis, unspecified; N39.0 Urinary tract infection, site not specified; E86.0 Dehydration; Z95.2 Presence of prosthetic heart valve; I25.10 Atherosclerotic heart disease of native coronary artery without angina pectoris; Z95.1 Presence of aortocoronary bypass graft; Z79.02 Long term (current) use of antithrombotics/antiplatelets; Z95.5 Presence of coronary angioplasty implant and graft; Z79.82 Long term (current) use of aspirin; Z79.899 Other long term (current) drug therapy; Z86.79 Personal history of other diseases of the circulatory system; R73.9 Hyperglycemia, unspecified; E04.1 Nontoxic single thyroid nodule; I10 Essential (primary) hypertension; R29.700 NIHSS score 0
CPT/HCPCS: 36415; 70450-TC; 70496-TC; 70498-TC; 70551-TC; 71045-TC; 80048-TC; 80053-TC; 80061-TC; 80076-TC; 81001; 82550-TC; 83605-TC; 83735-TC; 84100-TC; 84443-TC; 84484-TC; 85025-TC; 85730-TC; 97112-TC; 97116-TC; 97530-TC; 97535-TC; A4223; G0378; J1644; J3490; J7042; J7050; Q9967